=== PATIENT | male | born 1985 | race Asian ===

== ENCOUNTER 2025-02-04 17:12 | Emergency (ER) | payer OTHER ==
[2025-02-04 17:50] VITALS: BP 95/61; PULSE 68; RESP 16; TEMP 98; BMI 23.8
== END 2025-02-04 18:07 | disposition home or self-care (01) ==
LOC: FER 17:12
DX: S91.332A Puncture wound without foreign body, left foot, initial encounter (principal); W25.XXXA Contact with sharp glass, initial encounter
CPT/HCPCS: 99283-25; 99284-25